=== PATIENT | female | born 1965 | race African-American/Black ===

== ENCOUNTER 2018-08-01 07:53 | Day surgery (SDC) | payer OTHER ==
[2018-08-01] MEDS: NS 1,000 ML IV (08:30)
[2018-08-01] MEDS ORDERED: LIDOCAINE 2% INJ 100 MG/5 ML SDV (FOR ANES.) As Ordered (09:28)
[2018-08-01] MEDS ORDERED: PROPOFOL 200 MG/20 ML VIAL As Ordered ×2 (09:28)
== END 2018-08-01 10:03 | disposition home or self-care (01) ==
LOC: M OPP 07:53
DX: Z12.11 Encounter for screening for malignant neoplasm of colon (principal)
CPT/HCPCS: 45378

== ENCOUNTER → 2022-05-17 | Outpatient (CLI) | payer OTHER ==
[~2022-05-17] MED LIST: AMLO2.5T3 PO; ASPI81TA26 PO; ATOR40TA75 PO; CETI-24 PO; COLA100C5 PO; DRIS50003 PO; EPIP0.3I2 IM; FLON1SPR; JANU50TA25 PO; LISI10TA24 PO; MULT1TAB10 PO; NAPR-885 PO; PROAAER10 INH; SING10TA32 PO
== END ==
LOC: M WHC 15:43
PROVIDERS: ATTEND Family Medicine
DX: Z12.31 Encounter for screening mammogram for malignant neoplasm of breast (principal)

== ENCOUNTER → 2023-09-07 | Outpatient (CLI) | payer OTHER ==
[~2023-09-07] MED LIST changes: +MONT-5 PO; -SING10TA32 PO
== END ==
LOC: M WHC 12:20
PROVIDERS: ATTEND Family Medicine
DX: Z12.31 Encounter for screening mammogram for malignant neoplasm of breast (principal)